=== PATIENT | male | born 1945 | race Caucasian/White ===

== ENCOUNTER 2017-06-21 11:04 | Outpatient (CLI) | payer OTHER, MEDICARE | END 2017-06-21 11:05 | disposition home or self-care (01) | LOC: SC 11:04 | PROVIDERS: ATTEND Internal Medicine Pulmonary Disease | DX: R06.83 Snoring (principal); G47.10 Hypersomnia, unspecified; I10 Essential (primary) hypertension; J43.9 Emphysema, unspecified | CPT/HCPCS: 99203; 99212 ==

== ENCOUNTER 2017-07-19 19:28 | Outpatient (CLI) | payer OTHER, MEDICARE | END 2017-07-19 19:29 | disposition home or self-care (01) | LOC: SC 19:28 | PROVIDERS: ATTEND Internal Medicine Pulmonary Disease | DX: G47.33 Obstructive sleep apnea (adult) (pediatric) (principal); Z68.30 Body mass index [BMI] 30.0-30.9, adult | CPT/HCPCS: 95810 ==

== ENCOUNTER 2017-08-03 14:39 | Outpatient (CLI) | payer OTHER, MEDICARE | END 2017-08-03 14:40 | disposition home or self-care (01) | LOC: SC 14:39 | PROVIDERS: ATTEND Nurse Practitioner Family | DX: G47.33 Obstructive sleep apnea (adult) (pediatric) (principal) | CPT/HCPCS: 99212; 99214 ==

== ENCOUNTER 2017-09-23 20:07 | Outpatient (CLI) | payer OTHER, MEDICARE | END 2017-09-23 20:08 | disposition home or self-care (01) | LOC: SC 20:07 | PROVIDERS: ATTEND Internal Medicine Pulmonary Disease | DX: G47.33 Obstructive sleep apnea (adult) (pediatric) (principal) | CPT/HCPCS: 95811 ==

== ENCOUNTER 2017-12-24 12:24 | Outpatient (CLI) | payer OTHER, MEDICARE ==
--- NOTE | 2017-12-24 14:22 | Ultrasound Report ---
LIMITED RETROPERITONEAL ULTRASOUND: 12/24/2017 CLINICAL INDICATION: Followup abdominal aortic aneurysm. COMPARISON: 11/25/2015. TECHNIQUE: Real-time sonographic vascular imaging was performed by the visual effects artist through the retroperitoneum utilizing both color-flow and Doppler spectral analysis. Multiple sales representatives static images were saved for review. FINDINGS: The abdominal aorta measures 2.6 cm proximal, and 1.5 cm in the mid portion. A bilobed distal abdominal aortic aneurysm is again seen, measuring 4.3 x 4.1 cm in the more proximal portion and 3.3 x 3.1 cm in the more distal portion (previously up to 3.8 cm maximal diameter). The iliacs are normal in caliber. No free fluid is present. IMPRESSION: SLIGHT INTERVAL INCREASE IN SIZE OF BILOBED DISTAL ABDOMINAL AORTIC ANEURYSM, NOW MEASURING UP TO 4.3 CM IN MAXIMAL DIAMETER. TD: 12/24/2017 14:21 MTDD
== END 2017-12-24 12:25 | disposition home or self-care (01) ==
LOC: DI 12:24
PROVIDERS: ATTEND Nutritionist
DX: I71.4 Abdominal aortic aneurysm, without rupture (principal)
CPT/HCPCS: 76775

== ENCOUNTER 2018-02-22 11:21 | Day surgery (SDC) | payer MEDICARE, OTHER ==
[2018-02-22] MEDS ORDERED: LACTATED RINGERS 1,000 ML IV ONE (11:54)
[2018-02-22] MEDS ORDERED: fentaNYL 250 MCG/5 ML VIAL IVP ONE (13:20)
[2018-02-22] MEDS ORDERED: MIDAZOLAM 2 MG/2 ML VIAL IVP ONE (13:20)
[2018-02-22 14:13] VITALS: BP 162/87
== END 2018-02-22 11:22 | disposition home or self-care (01) ==
LOC: SDS 11:21
PROVIDERS: ATTEND Surgery
PROC: 0DBL8ZX Excision of Transverse Colon, Via Natural or Artificial Opening Endoscopic, Diagnostic (ICD-10-PCS; 2018-02-22)
PROC: 0DBP8ZX Excision of Rectum, Via Natural or Artificial Opening Endoscopic, Diagnostic (ICD-10-PCS; 2018-02-22)
PROC: 0DBM8ZX Excision of Descending Colon, Via Natural or Artificial Opening Endoscopic, Diagnostic (ICD-10-PCS; 2018-02-22)
PROC: 0DBK8ZX Excision of Ascending Colon, Via Natural or Artificial Opening Endoscopic, Diagnostic (ICD-10-PCS; principal; 2018-02-22 12:45)
DX: Z12.11 Encounter for screening for malignant neoplasm of colon (principal); D12.2 Benign neoplasm of ascending colon; D12.3 Benign neoplasm of transverse colon; D12.4 Benign neoplasm of descending colon; K64.8 Other hemorrhoids; K62.1 Rectal polyp; I10 Essential (primary) hypertension; Z79.82 Long term (current) use of aspirin; J43.9 Emphysema, unspecified; E78.00 Pure hypercholesterolemia, unspecified; F17.210 Nicotine dependence, cigarettes, uncomplicated
CPT/HCPCS: 45380; J7120; 88305

== ENCOUNTER 2018-03-17 01:26 | Outpatient (CLI) | payer MEDICARE, OTHER | END 2018-03-17 01:27 | disposition critical access hospital (66) | LOC: EMS 01:26 | PROVIDERS: ATTEND Surgery | DX: I63.9 Cerebral infarction, unspecified (principal) | CPT/HCPCS: A0425; A0429 ==

== ENCOUNTER 2018-03-17 01:39 | Emergency (ER) | payer MEDICARE, OTHER ==
--- NOTE | 2018-03-17 01:46 | ED Physician Documentation ---
PD HPI FOCAL NEURO - Stated complaint Stated Complaint: STROKE LIKE SYMPTOMS - History obtained from History obtained from: Patient, EMS - History of Present Illness Timing - onset: Today Timing - details: Abrupt onset, Now resolved Severity of deficit: Moderate Weakness: Face Numbness: Face Associated symptoms: No: Headache, Nausea / vomiting, Seizure, Syncope Similar symptoms before: Has not had sx before Recently seen: Not recently seen - Additional information Additional information: patient is a 72 year old male with multiple co-morbidities who is presenting to the emergency department for facial numbess and slurred speech. According to patient and ems, patient woke up to adjust his cpap machine. At that time patient had some slurred speech and facial droop. Family called ems. While enroute patient's symptoms resolved. Upon initial evaluation in the emergency department patient was well appearing and denied any deficits. patient was moving all extremities. Review of Systems Ten Systems: 10 systems reviewed and negative PD PAST MEDICAL HISTORY - Past Medical History Cardiovascular: Congestive heart failure, Hypertension Respiratory: COPD Endocrine/Autoimmune: None GI: Colon polyps : None HEENT: Chronic hearing loss Psych: None Musculoskeletal: Osteoarthritis Derm: None - Past Surgical History General: Appendectomy, Colonoscopy Ortho: Arthroscopic surgery HEENT: Tonsil/Adenoidectomy - Present Medications Home Medications: Ambulatory Orders Medication Instructions Recorded Confirmed Alendronate [Fosamax] 1 tab ORAL 08/08/15 08/08/15 Aspirin 1 tab ORAL DAILY 08/08/15 08/08/15 Doxazosin [Cardura] 2 mg ORAL DAILY 08/08/15 08/08/15 Hydrochlorothiazide 1 tab ORAL DAILY 08/08/15 08/08/15 Lisinopril 40 mg PO DAILY 08/08/15 08/08/15 Meloxicam 15 mg PO DAILY 08/08/15 08/08/15 Omeprazole 1 tab ORAL DAILY 08/08/15 08/08/15 Rosuvastatin Calcium [Crestor] 1 tab ORAL DAILY 08/08/15 08/08/15 Sildenafil Citrate 50 mg PO 03/17/18 Umeclidinium Brm/Vilanterol Tr 1 each IH 03/17/18 [Anoro Ellipta 62.5-25 Mcg INH] - Allergies Allergies/Adverse Reactions: Allergies Allergy/AdvReac Type Severity Reaction Status Date / Time No Known Drug Allergies Allergy Verified 03/17/18 02:08 PD ED PE NORMAL - Vitals Vital signs reviewed: Yes - General General: Alert and oriented X 3, No acute distress - HEENT HEENT: Atraumatic, PERRL - Neck Neck: Supple, no meningeal sign - Cardiac Cardiac: RRR - Respiratory Respiratory: No respiratory distress - Derm Derm: Normal color, No rash - Extremities Extremities: No deformity - Neuro Neuro: Alert and oriented X 3, No motor deficit, Normal speech Eye Opening: Spontaneous - Psych Psych: Normal mood PD ED PE EXPANDED - Neuro Neuro: Alert and Oriented X 3, Normal motor, Normal Sensation, Normal Speech, CNII-XII intact, Normal gait, Normal finger nose, Normal speech. No: Confused, Disoriented, Weakness, Abnormal sensation, Aphasia, Dysarthria NIHSS - Time Time: 01:40 - Level of Consciousness Level of consciousness: (0) Alert, Keenly responsive LOC Questions: (0) Answers both Q's correct LOC Commands: (0) Performs both correctly - Gaze Best Gaze: (0) Normal - Visual Visual: (0) No loss - Facial Palsy Facial Palsy: (0) Normal, symmetrical movement - Motor Arms (both separate) Motor Arm (right): (0) No drift Motor Arm (left): (0) No drift - Motor Legs (both separate) Motor Leg (left): (0) No drift - Limb Ataxia Limb Ataxia: (0) Absent - Sensory Sensory: (0) Normal - Best Language Best Language: (0) No aphasia - Dysarthria Dysarthria: (0) Normal - Extinction and Inattention (formally neg Extinction and inattention: (0) No abnormality Results - Vitals Vitals: Vital Signs - 24 hr 03/17/18 03/17/18 01:40 02:10 Temperature 36.6 C Heart Rate 77 80 Respiratory 19 21 Rate Blood Pressure 176/92 H 183/100 H O2 Saturation 98 96 Oxygen O2 Source Room air - EKG (time done) 0204 Rate: Rate (enter#) (76) Rhythm: NSR [place]: Normal Intervals: Normal GA QRS: Normal Compare to prior EKG: Old EKG unavailable - Labs Labs: Laboratory Tests 03/17/18 03/17/18 03/17/18 02:00 02:00 02:00 WBC 11.5 H RBC 4.84 Hgb 13.9 L Hct 42.2 MCV 87.3 MCH 28.8 MCHC 33.0 RDW 13.6 Plt Count 279 MPV 7.8 Neut # (Auto) 6.9 H Lymph # (Auto) 2.9 [place] # (Auto) 1.2 H Eos # (Auto) 0.4 Baso # (Auto) 0.1 Absolute Nucleated RBC 0.01 Nucleated RBC % 0.1 PT 11.4 INR 1.0 APTT 30.6 Sodium 135 Potassium 3.6 Chloride 102 Carbon Dioxide 22 Anion Gap 11.0 BUN 19 Creatinine 1.1 Estimated GFR (MDRD) 66 L Glucose 148 H Calcium 9.2 Total Bilirubin 0.3 AST 25 ALT 24 Alkaline Phosphatase 53 Troponin I B-Natriuretic Peptide Total Protein 7.5 Albumin 3.8 Globulin 3.7 Albumin/Globulin Ratio 1.0 Lipase 35 03/17/18 03/17/18 02:00 02:00 WBC RBC Hgb Hct MCV MCH MCHC RDW Plt Count MPV Neut # (Auto) Lymph # (Auto) [place] # (Auto) Eos # (Auto) Baso # (Auto) Absolute Nucleated RBC Nucleated RBC % PT INR APTT Sodium Potassium Chloride Carbon Dioxide Anion Gap BUN Creatinine Estimated GFR (MDRD) Glucose Calcium Total Bilirubin AST ALT Alkaline Phosphatase Troponin I < 0.04 B-Natriuretic Peptide 17 Total Protein Albumin Globulin Albumin/Globulin Ratio Lipase - Rads (name of study) ct head Radiology: Final report received, Discussed with rads (no acute intracranial abnormality) PD MEDICAL DECISION MAKING - ED course Complexity details: reviewed old records, reviewed results, re-evaluated patient , considered differential, d/w patient, d/w family ED course: Patient was immediately seen and examined at bedside. Upon presentation in the emergency department patient's symptoms had resolved and patient had a NIHSS or 0. IV access was gained and labs were drawn. imaging was ordered. When patient returned from imaging the results were discussed with radiologist. there were no acute ischemic changes. patient was not treated with tpa because he was asymptomatic. Patient was asymptomatic and hypertension resolved on its own. ample time was given to the patient and family concerning warning signs and symptoms. Patient and family understood. patient required no further inpatient work up at this time and was stable for discharge with outpatient follow up. - Sepsis Event Vital Signs: Vital Signs - 24 hr 03/17/18 03/17/18 01:40 02:10 Temperature 36.6 C Heart Rate 77 80 Respiratory 19 21 Rate Blood Pressure 176/92 H 183/100 H O2 Saturation 98 96 Oxygen O2 Source Room air - TPA CVA checklist Inclusion crititeria: positive: CT no bleed, Onset know < 4.5 hr. negative: Sig neuro deficit Relative contraindications: positive: Too mild, Rapid improvement Departure - Departure Disposition: Home, Self Care Clinical Impression: TIA (transient ischemic attack) Condition: Good Instructions: ED Transient Ischemic Attack Follow-Up: primary,care provider [Other] - Tomorrow Comments: Your diagnostics today were within normal limits. Your symptoms were likely secondary to what we call TIA. Now that you have had one you are at a higher risk for having another TIA or stroke. It is important that you quit smoking and change to a low fat diet high in vegetables. You should also increase the amount you exercise. You should follow up with your doctor tomorrow and let them know you were here. You should continue with your daily aspirin. You may return to the emergency department if you ever have these symptoms again, or new , worsening or uncontrollable symptoms.
--- NOTE | 2018-03-17 02:15 | CT Report ---
Procedure Date: 03/17/2018 Accession Number: [id number] / [id number] Procedure: CT - Head W/O Stroke Protocol CPT Code: FULL RESULT: EXAM: CT HEAD EXAM DATE: 03/17/2018 01:54 AM. CLINICAL HISTORY: Facial droop. COMPARISON: None. TECHNIQUE: Multiaxial CT images were obtained from the foramen magnum to the vertex. Reformats: Coronal. IV contrast: None. In accordance with CT protocol optimization, one or more of the following dose reduction techniques were utilized for this exam: automated exposure control, adjustment of mA and/or KV based on patient size, or use of iterative reconstructive technique. FINDINGS: Parenchyma: No intraparenchymal hemorrhage. No evidence of mass, midline shift, or CT findings of acute infarction. Severino-white differentiation is distinct. There is mild chronic microvascular changes in the deep white matter bilaterally. Physiologic calcification is noted in the globus pallidus bilaterally. Extraaxial Spaces: Normal for age. No subdural or epidural collections identified. Ventricles: Normal in size and position. Sinuses and Orbits: Imaged paranasal sinuses, orbits, and mastoids show no significant abnormality. Bones: No evidence of fracture or calvarial defect. Other: None. IMPRESSION: 1. No acute intracranial abnormality. ASPECTS is 10 bilaterally. 2. No intracranial mass lesion, mass effect, or hydrocephalus. 3. Mild chronic microvascular ischemic change. RADIA The above findings were discussed with Asa Ordaz by Dr. Eliseo Vallejo at 02:14 hrs on 03/17/18.
[2018-03-17 02:18] LABS: BASOPHILS # (AUTO) 0.1 10^3/uL (0.0-0.1); BASOPHILS % (AUTO) 0.8 %; EOSINOPHILS # (AUTO) 0.4 10^3/uL (0.0-0.7); EOSINOPHILS % (AUTO) 3.1 %; HGB - HEMOGLOBIN 13.9 g/dL (14.0-18.0); LYMPHOCYTES # (AUTO) 2.9 10^3/uL (1.5-3.5); LYMPHOCYTES % (AUTO) 25.2 %; MEAN CORPUSCULAR HEMOGLOBIN 28.8 pg (27.0-31.0); MEAN CORPUSCULAR VOLUME 87.3 fL (80.0-94.0); MEAN PLATELET VOLUME 7.8 fL (7.4-11.4); MONOCYTES # (AUTO) 1.2 10^3/uL (0.0-1.0); MONOCYTES % (AUTO) 10.6 %; NEUTROPHILS # (AUTO) 6.9 10^3/uL (1.5-6.6); NEUTROPHILS % (AUTO) 60.3 %; PLT - PLATELET COUNT 279 10^3/uL (130-450); RED BLOOD COUNT 4.84 10^6/uL (4.70-6.10); RED CELL DISTRIBUTION WIDTH 13.6 % (12.0-15.0); WHITE BLOOD COUNT 11.5 x10^3/uL (4.8-10.8)
[2018-03-17 02:19] LABS: PT - PROTHROMBIN TIME 11.4 secs (9.9-12.6)
[2018-03-17 02:23] LABS: ALBUMIN 3.8 g/dL (3.2-5.5); BILIRUBIN,TOTAL 0.3 mg/dL (0.2-1.0); CALCIUM 9.2 mg/dL (8.5-10.3); CREATININE 1.1 mg/dL (0.6-1.2); TOTAL PROTEIN 7.5 g/dL (6.7-8.2)
[2018-03-17 02:45] VITALS: BP 173/104
== END 2018-03-17 02:57 | disposition home or self-care (01) ==
LOC: EDUNIT# → ED 01:39
DX: G45.9 Transient cerebral ischemic attack, unspecified (principal); I11.0 Hypertensive heart disease with heart failure; I50.9 Heart failure, unspecified; J44.9 Chronic obstructive pulmonary disease, unspecified; M19.90 Unspecified osteoarthritis, unspecified site; Z87.19 Personal history of other diseases of the digestive system; Z79.82 Long term (current) use of aspirin
CPT/HCPCS: 70450; 80053; 83690; 83880; 84484; 85025; 85610; 85730; 93005; 99283; 99284